=== PATIENT | female | born 1985 | race Caucasian/White ===

== ENCOUNTER 2017-06-05 21:44 | Emergency (ER) | payer SELFPAY ==
[~2017-06-05] VITALS: Ht 160 cm; Wt 65.0 kg
[~2017-06-05 21:44] MED LIST: ALBUPOW38 PO; TESS200C PO; Z.0.NO CURRENT MEDS; ZITH250T PO
[2017-06-05 21:45] VITALS: BP 138/89; PULSE 120; RESP 18; TEMP 99; O2SAT 100
--- NOTE | 2017-06-05 22:09 | PD ---
HPI Chief Complaint: Abdominal Pain Time Seen by Provider: 22:03 Travel History International Travel<30 days: No Contact w/Intl Traveler<30days: No Traveled to known affect area: No History of Present Illness HPI 32-year-old female presents to the emergency department for evaluation of suprapubic pain with dysuria, urinary frequency and urgency that started yesterday, but worsened today. Patient states she's had urinary tract infections in the past that feel the same way. She denies any abnormal vaginal discharge or risk of STDs. She is unsure she could be . She reports no chronic medical problems and takes no prescribed medications. Patient has had C-sections the past, but no other abdominal surgeries. Mild to moderate severity. No exacerbating or alleviating factors. Current pain is 6/10, aching , cramping. PFSH Past Medical History Cancer: No Diabetes: No Diminished Hearing: No Hepatitis: No Hiatal Hernia: No Thyroid Disease: No ?: Unknown LMP: 05/2017 : 2 Para: 1 Miscarriage: 0 : 1 Past Surgical History Cardiac Surgery: No Section: Yes (2007) Ear Surgery: No Endocrine Surgery: No Eye Surgery: No Genitourinary Surgery: No Gynecologic Surgery: Yes () Oral Surgery: No Thoracic Surgery: No Other Surgery: Yes Social History Alcohol Use: No Tobacco Use: Yes (1PPD) Substance Use: No (WAS ON DILAUDID IV DRUG USE,STOPPED IN 07/17) Allergies-Medications (Allergen,Severity, Reaction): Coded Allergies: No Known Allergies (Verified , 01/29/14) Reported Meds & Prescriptions Reported Meds & Active Scripts Active No Active Prescriptions or Reported Medications Review of Systems Except as stated in HPI: all other systems reviewed are Neg Physical Exam Narrative GENERAL: Well-nourished, well-developed female patient, ambulatory. Afebrile. SKIN: Focused skin assessment warm/dry. HEAD: Normocephalic. Atraumatic. EYES: No scleral icterus. No injection or drainage. NECK: Supple, trachea midline. No JVD or lymphadenopathy. CARDIOVASCULAR: Regular rate and rhythm without murmurs, gallops, or rubs. RESPIRATORY: Breath sounds equal bilaterally. No accessory muscle use. Lungs sounds are clear to auscultation. GASTROINTESTINAL: Abdomen soft, and nondistended. Patient has tenderness over suprapubic region MUSCULOSKELETAL: No cyanosis, or edema. BACK: Nontender without obvious deformity. No CVA tenderness. Data Data Last Documented VS Vital Signs Date Time Temp Pulse Resp B/P (MAP) Pulse Ox O2 Delivery O2 Flow Rate FiO2 06/05/17 22:47 96 16 113/70 (84) 97 Room Air 06/05/17 21:45 99.0 Orders Orders Urinalysis - C+S If Indicated (06/05/17 22:08) Ed Urine Pregnancytest Poc (06/05/17 22:08) Ketorolac Inj (Toradol Inj) (06/05/17 22:15) Urine Culture (06/05/17 22:10) Labs Laboratory Tests Test 06/05/17 22:10 Urine Color YELLOW Urine Turbidity CLOUDY Urine pH 7.0 Urine Specific [place] 1.015 Urine Protein 100 mg/dL Urine Glucose (UA) NEG mg/dL Urine Ketones NEG mg/dL Urine Occult Blood MOD Urine Nitrite NEG Urine Bilirubin NEG Urine Urobilinogen LESS THAN 2.0 MG/DL Urine Leukocyte Esterase LARGE Urine RBC /hpf Urine WBC /hpf Urine WBC Clumps MANY Urine Squamous Epithelial Cells 2 /hpf Urine Bacteria RARE /hpf Urine Mucus FEW /lpf Microscopic Urinalysis Comment CULTURE INDICATED MDM Medical Decision Making Medical Screen Exam Complete: Yes Emergency Medical Condition: Yes Medical Record Reviewed: Yes Differential Diagnosis UTI versus pyelonephritis versus dysuria versus nephrolithiasis Narrative Course 32-year-old female presents to the emergency department believing she has a urinary tract infection. She reports the same symptoms in the past with UTIs. UA is ordered and pending. Urine test is negative. Patient is given Toradol 60 mg IM. UA shows large leukocyte esterase, innumerable WBC, many wbc clumps. Patient is given Rocephin 1 g IM. She'll be discharged with prescription for Keflex. She is at her follow-up with primary care physician. She is return here for any acute worsening of symptoms. The patient was discharged in stable condition with instructions, including return instructions and follow up instructions. Diagnosis Primary Impression: Urinary tract infection Qualified Codes: N30.01 - Acute cystitis with hematuria Referrals: Primary Care Physician call for appointment Patient Instructions: General Instructions, Urinary Tract Infection in Women ( ED) Additional Instructions: Take antibiotic as directed until gone. Take Pyridium as directed as needed for pain with urination. Follow-up with your primary care physician. Return to the emergency department for any acute worsening of symptoms. Med/Other Pt SpecificInfo: Prescription(s) given Scripts Phenazopyridine (Pyridium) 100 Mg Tab 100 MG PO Q8H Y for DYSURIA, #21 TAB 0 Refills Prov: Mabel Leach 06/05/17 Cephalexin (Keflex) 500 Mg Cap 500 MG PO Q8H for Infection for 7 Days, #21 CAP 0 Refills Prov: Mabel Leach 06/05/17 Disposition: 01 DISCHARGE HOME Condition: Stable Mabel Leach Jun 05, 2017 22:09
[2017-06-05] MEDS ORDERED: KETOROLAC TROMETHAMINE 60 MG/2 ML (IM) VIAL IM ONE (22:15)
[2017-06-05 22:47] VITALS: BP 113/70; PULSE 96; RESP 16; O2SAT 97
[2017-06-05 23:00] LABS: BACTERIA, URINE RARE /hpf; BLOOD, URINE MOD (NEG); COMMENT (UR) CULTURE INDICATED; CULTURE IF INDICATED CULTURE INDICATED; GLUCOSE,URINE NEG (NEG); KETONE, URINE NEG (NEG); MUCUS URINE FEW /lpf (OCC); NITRITE,URINE NEG (NEG); SQUAMOUS EPITHELIAL CELL URINE 2 /hpf (0-5); URINE COLOR YELLOW (YELLW/STRAW)
[2017-06-05] MEDS ORDERED: CEPH-460 PO (23:04)
[2017-06-05] MEDS ORDERED: PHEN0.4T PO (23:05)
[2017-06-05] MEDS ORDERED: LIDOCAINE HCL 1% 50 ML VIAL XX ONE (23:15)
== END 2017-06-05 23:13 | disposition home or self-care (01) ==
LOC: NEPC 21:44
DX: N30.01 Acute cystitis with hematuria (principal); B96.20 Unspecified Escherichia coli [E. coli] as the cause of diseases classified elsewhere; F17.210 Nicotine dependence, cigarettes, uncomplicated; Z16.19 Resistance to other specified beta lactam antibiotics; Z16.11 Resistance to penicillins
CPT/HCPCS: 81001; 84703; 87077; 87086; 87186; 96372; 99284; J0696; J1885